=== PATIENT | male | born 1935 | race Caucasian/White ===

== ENCOUNTER 2016-03-16 12:18 | Outpatient (RCR) | payer MEDICARE, MEDICAID ==
[~2016-03-16 12:18] MED LIST: ACYC30OI TOP; AGM875T PO; ASP325TEC PO; ASP81CT PO; ASP81TEC PO; ASPI325T32 PO; BUDE0.5A2 NEB; CEFD300C3 PO; CLOP75TA PO; DAILY-VITE PO; DCS100C PO; DIGO250T96 PO; DILT120C PO; DILT240C96 PO; DONE10TA41 PO; DONE10TA5 PO; FRSM40T PO; FURO20TA4 PO; FURO40TA4 PO; GLIM4TAB PO; GLYB2.5T4 PO; GLYB5TAB6 PO; INSASP10V SQ; INSU100C4 SQ; INSU100V5 SQ; INSULIN SC; IPRA3AMP11 NEB; KCL10CCR PO; LEVO125T6 PO; LISI20TA2 PO; LORA0.5T34 PO; LVT.05T PO; MAGN400T6 PO; MELA1TAB11 PO; METO25TA PO; METO50TA7 PO; MGX400T PO; MTF500T PO; MULT-974 PO; Magnesium Oxide PO; NEOM15OI26 TOP; OMEG1CAP77 PO; OMEP-10 PO; OMEP20CA12 PO; OMEP40CA36 PO; PANT40TA PO; PNT40TEC PO; POLY17PO23 PO; POTA10TA36 PO; POTA20TA15 PO; PRED10TA PO; PROP10DR4 OU; PROP15DR OU; RIVA20TA2 PO; RSG4T PO; SAXA5TAB PO; SENN1TAB76 PO; SIMV20TA3 PO; SIMV40TA4 PO; SIMV80TA3 PO; SPRN25T PO; TMZP15C PO; TRAV5DRO OU; TRAZ-144 PO; WARF4TAB PO; WRF5T PO; ZINC113C8 TP
--- OUTSIDE RECORDS SUMMARY | 2016-03-16 12:22 | XMS REPORT | Continuity of Care Document ---
Author Author [facility] Organization [facility] Address Unknown Phone Unavailable Care Team Providers Care Outside Sales Professional Name Role Phone GERMANIA CHAIREZ MD PCP Insurance Providers Payer Name Policy Number Subscriber Name Relationship Wps Medicare [id number] Allison Mondragon 16 Self / Same As Patient Self Pay Pending Radha Apprv [id number] Allison Mondragon 16 Self / Same As Patient Advance Directives Directive Response Recorded Date/Time Advance Directives No 01/02/14 4:59pm Health Care Power of Tap And Die Maker Technician No 01/02/14 4:59pm Organ Donor No 02/06/13 [...] 120 Mg PO DAILY 02/18/10 12/02/11 Discontinued [place]-3/Dha/Epa/Fish Oil 1 Each PO DAILY 12/02/11 03/22/12 [...] F (97.6 - 99.5) Temperature (Calculated Celsius) 36.84450 degrees C (36.4 - 37.5) Temperature Source Temporal Pulse Rate (adult) 79 bpm (60 - 90) Respiratory Rate 18 bpm (12 - 24) O2 Sat by Pulse Oximetry 94 % (88 - 100) Blood Pressure 122/67 mm Hg Pain Pain Intensity 0 Height (Feet) 6 feet Height (Inches) 0.00 inches Height (Calculated Centimeters) 182.645304 cm Weight (Pounds) 211 pounds Weight (Calculated Grams) 93172.991 gm Weight (Calculated Kilograms) 95.435736 kilograms Calculated BMI 28.61 Results Test Source [...] NG/ML - Interpretative data is available online at:[email or web address] Enter Test Number:[id number] Prothromb Time International Ratio August 25, 2012 12:56pm 2.7 H 0.8-1.4 INTERPRETIVE DATASUGGESTED THERAPEUTIC RANGE FOR INR'S: VENOUS THROMBOSIS, PULMONARY EMBOLISM, OR PREVENTION OF SYSTEMIC EMBOLISM (EG. IN ATRIAL FIBRILLATION): 2.0 - 3.0 MECHANICAL PROSTHETIC HEART VALVES: 2.5 - 3.5* *NOTE: INR'S UP TO 4.5 MAY BE NECESSARY IN SELECTED GROUPS OF HIGH RISK PATIENTS. [employer] [employer] CONSENSUS CONFERENCE ON ANTITHROMBOTIC THERAPY (2000). Prothrombin Time March 01, 2013 2:15pm 25.7 SEC H 12.2-14.7 Red Blood Count January 02, 2014 1:30pm 2.36 10^6/uL L 4.35-5.85 PRINT TO CCRPT5 Red Cell Distribution Width January 02, 2014 1:30pm 16.0 % H 10.0-14.5 PRINT TO CCRPT5 Sodium Level January 02, 2014 1:30pm 129 MMOL/L L 135-145 PRINT TO CCRPT5 TSH [place] Testing February 17, 2010 2:40pm 1.25 UIU/ML [...] collected/obtained? YSpecimen Description CLEAN CATCH Urine Specific [place] May 06, 2012 9:53am 1.015 L - [...] February 13, 2013 1:12pm Transfusion Reaction Form [id number] - Estimat Glomerular Filtration Rate January 02, [...] SELECTED GROUPS OF HIGH RISK PATIENTS. [employer] CONSENSUS CONFERENCE ON [...] SELECTED GROUPS OF HIGH RISK PATIENTS. [employer] CONSENSUS CONFERENCE ON [...]
[2016-03-16 13:27] LABS: BASOPHILS % (AUTO) 0 % (0-10); EOSINOPHILS # (AUTO) 0.1 10^3/uL (0.0-0.3); EOSINOPHILS % (AUTO) 2 % (0-10); LYMPHOCYTES # (AUTO) 1.5 X 10^3 (1.0-4.0); LYMPHOCYTES % (AUTO) 22 % (12-44); MEAN CORPUSCULAR HEMOGLOBIN 31 PG (25-34); MEAN CORPUSCULAR HGB CONC 33 G/DL (32-36); MEAN CORPUSCULAR VOLUME 92 FL (80-99); MEAN PLATELET VOLUME 9.2 FL (7.4-10.4); MONOCYTES # (AUTO) 0.9 X 10^3 (0.0-1.0); MONOCYTES % (AUTO) 14 % (0-12); NEUTROPHILS # (AUTO) 4.1 X 10^3 (1.8-7.8); NEUTROPHILS % (AUTO) 62 % (42-75); PLATELET COUNT 202 10^3/uL (130-400); RED BLOOD COUNT 4.03 10^6/uL (4.35-5.85); RED CELL DISTRIBUTION WIDTH 13.6 % (10.0-14.5); WHITE BLOOD COUNT 6.7 10^3/uL (4.3-11.0)
[2016-03-16 14:09] LABS: ALANINE AMINOTRANSFERASE 60 U/L (0-55); ALBUMIN 3.9 G/DL (3.2-4.5); ANION GAP 14 MMOL/L (5-14); ASPARTATE AMINO TRANSFERASE 26 U/L (5-34); BILIRUBIN,TOTAL 0.1 MG/DL (0.1-1.0); BLOOD UREA NITROGEN 18 MG/DL (7-18); BUN/CREATININE RATIO 16; CALCIUM 9.5 MG/DL (8.5-10.1); CARBON DIOXIDE 20 MMOL/L (21-32); CHLORIDE 104 MMOL/L (98-107); CREATININE SERUM 1.11 MG/DL (0.60-1.30); GFR ESTIMATED > 60; GLUCOSE 134 MG/DL (70-105); POTASSIUM 4.1 MMOL/L (3.6-5.0); SODIUM 138 MMOL/L (135-145); TOTAL PROTEIN 6.6 G/DL (6.4-8.2)
== END 2016-06-14 | disposition home or self-care (01) ==
LOC: ONC 12:18
PROVIDERS: ATTEND Internal Medicine Hematology & Oncology
DX: C34.2 Malignant neoplasm of middle lobe, bronchus or lung (principal); J44.9 Chronic obstructive pulmonary disease, unspecified; E83.42 Hypomagnesemia; I48.91 Unspecified atrial fibrillation; E11.9 Type 2 diabetes mellitus without complications; D64.9 Anemia, unspecified; Z79.01 Long term (current) use of anticoagulants
CPT/HCPCS: 36415; 80053; 85025; 99213

== ENCOUNTER 2016-05-11 10:07 | Outpatient (RCR) | payer MEDICARE, MEDICAID ==
--- OUTSIDE RECORDS SUMMARY | 2016-03-10 14:23 | XMS REPORT | Continuity of Care Document ---
Author Author [facility] Organization [facility] Address Unknown Phone Unavailable Care Team Providers Care User Experience Team Lead Name Role Phone GERMANIA CHAIREZ MD PCP Insurance Providers Payer Name Policy Number Subscriber Name Relationship Wps Medicare [id number] Allison Mondragon 18 Self / Same As Patient Self Pay Pending Radha Apprv [id number] Allison Mondragon 18 Self / Same As Patient Advance Directives Directive Response Recorded Date/Time Advance Directives No 01/02/14 4:59pm Health Care Power of Clip Bolter And Wrapper No 01/02/14 4:59pm Organ Donor No 02/06/13 2:31pm Resuscitation Status Full Code 01/02/14 4:59pm Problems No known problems or medical conditions. Medications Medication Dose Route Sig Days/Qty Instructions Order Date Discontinued Date Status Metformin HCl (Glucophage) 2 Each PO TWICE A DAY WITH MEALS 02/17/10 02/11/13 Discontinued Glyburide (Micronase) 2 Each PO TWICE A DAY 02/17/10 02/06/13 Discontinued Simvastatin 0.5 Tab PO BEDTIME 02/17/10 02/17/10 Discontinued [Daily-Yojana] 1 Tab PO DAILY 02/17/10 02/06/13 Discontinued Omeprazole 20 Mg PO DAILY 02/17/10 12/02/11 Discontinued Lisinopril 20 Mg PO DAILY 02/17/10 Active Rosiglitazone Maleate 8 Mg PO DAILY 02/17/10 12/02/11 Discontinued Simvastatin 40 Mg PO TWICE A DAY 02/17/10 02/06/13 Discontinued Diltiazem HCl (Cardizem Cd) 120 Mg PO DAILY 02/18/10 12/02/11 Discontinued [place]-3/Dha/Epa/Fish Oil 1 Each PO DAILY 12/02/11 03/22/12 Discontinued [Insulin] 20 Units SC BEDTIME PT DOES NOT KNOW THE NAME OF HIS INSULIN 12/02/11 02/06/12 Discontinued Aspirin 81 Mg PO DAILY 02/06/12 02/11/13 Discontinued Clopidogrel Bisulfate 75 Mg PO DAILY 02/06/12 Active Diltiazem Hcl 240 Mg PO DAILY 02/06/12 Active Pantoprazole Sodium 40 Mg PO DAILY 02/06/12 04/18/12 Discontinued Metoprolol Succinate 25 Mg PO DAILY 02/06/12 01/02/14 Discontinued Insulin Glargine 35 Units SQ BEDTIME 02/06/12 Active Amoxicillin/Clavulanate Potassium 1 Tab PO TWICE A DAY 20 Qty 03/06/12 03/22/12 Discontinued Senna 2 Tab PO BEDTIME 03/22/12 Active Docusate Sodium 100 Mg PO THREE TIMES A DAY PRN CONSTIPATION NEEDED FOR CONSTIPATION 03/22/12 Active Potassium Chloride 10 Meq PO DAILY WITH MEAL 03/22/12 Active Furosemide (Lasix) 40 Mg PO DAILY 03/22/12 Active Magnesium Oxide 400 Mg PO TWICE A DAY 03/22/12 Active Omeprazole 2 Cap PO DAILY 04/18/12 01/02/14 Discontinued Warfarin Sodium 1 Each PO DIRECTED 04/19/12 02/06/13 Discontinued Cefdinir (Omnicef) 1 Each PO TWICE A DAY 10 Qty 06/01/12 01/16/13 Discontinued Glyburide (Micronase) 2.5 Mg PO TWICE DAILY BEFORE MEALS 02/06/13 Active Simvastatin 20 Mg PO BEDTIME 02/06/13 Active Multivitamin 1 Tab PO DAILY 02/06/13 Active Digoxin 0.25 Mg PO DAILY 02/11/13 Active Rivaroxaban 20 Mg PO DAILY 02/11/13 01/05/14 Discontinued Metoprolol Succinate (Toprol Xl) 25 Mg PO DAILY 01/02/14 Active Omeprazole 40 Mg PO DAILY 01/02/14 Active Levothyroxine Sodium 50 Mcg PO DAILY 01/02/14 Active Social History Social History Problem Response Recorded Date/Time Alcohol Use Past History 01/02/2014 5:01pm Recreational Drug Use No 01/02/2014 5:01pm Recent Foreign Travel No 01/02/2014 5:01pm Recent Infectious Disease Exposure No 01/02/2014 5:01pm Hospitalization with Isolation Denies 01/05/2014 3:40pm Sexually Transmitted Disease No 01/02/2014 5:01pm HIV/AIDS No 01/02/2014 5:01pm Smoking Status Former Smoker 01/02/2014 4:56pm Do you dip or chew tobacco? No 01/02/2014 4:56pm Query Response Start Date Stop Date Smoking Status Former Smoker 01/03/1984 Hospital Discharge Instructions Patient Instructions Physician Instructions New, Converted, or Re-newed RX: Other (patient has medications already) Plan of Care/Instructions/FU: Follow up with Dr. Maria in 2 week, with lab visit on WednesdayJan 09, for CBC check; Activity as Tolerated: Yes Goal: Self care Dicharge Diet: ADA Diet Return to the hospital for: Weakness, dizziness, Black stools. Plan of Care Discharge Date 01/05/14 3:10pm Disposition 30 STILL A PATIENT Instructions/Education Provided Gastritis (DC) Forms Provided Follow-Up Appts. Prescriptions See Medications Section Functional Status Query Response Date Recorded Patient Orientation Person Place Time Situation Normal For Age January 05, 2014 3:40pm Comprehension Ability Understands Concepts January 05, 2014 8:00am Allergies, Adverse Reactions, Alerts Allergen Type Severity Reaction Status Last Updated No Known Drug Allergies Active 03/22/12 Immunizations Name Given Type Date of Pneumonia Vaccine 03/07/09 Historical Date of Influenza Vaccine 03/07/12 Historical Hepatitis A No Historical Hepatitis B No Historical Tetanus Booster (TDap) Less than 5yrs Historical Vital Signs Acute Vital Signs Vital Response Date/Time Temperature (Fahrenheit) 98.5 degrees F (97.6 - 99.5) Temperature (Calculated Celsius) 36.24648 degrees C (36.4 - 37.5) Temperature Source Temporal Pulse Rate (adult) 79 bpm (60 - 90) Respiratory Rate 18 bpm (12 - 24) O2 Sat by Pulse Oximetry 94 % (88 - 100) Blood Pressure 122/67 mm Hg Pain Pain Intensity 0 Height (Feet) 6 feet Height (Inches) 0.00 inches Height (Calculated Centimeters) 182.557403 cm Weight (Pounds) 211 pounds Weight (Calculated Grams) 43798.991 gm Weight (Calculated Kilograms) 95.169499 kilograms Calculated BMI 28.61 Results Test Source Date Result Interp. Ref. Range Comments Activated Partial Thromboplast Time October 20, 2012 12:45pm 52 SEC H 24-35 Alanine Aminotransferase (ALT/SGPT) December 26, 2013 12:45pm 10 U/L N 0-55 PRINT TO CCRPT5 Albumin December 26, 2013 12:45pm 3.3 G/DL N 3.2-4.5 PRINT TO CCRPT5 Alkaline Phosphatase December 26, 2013 12:45pm 63 U/L N 40-136 PRINT TO CCRPT5 Anisocytosis June 01, 2012 2:20pm SLIGHT - Aspartate Amino Transf (AST/SGOT) December 26, 2013 12:45pm 14 U/L N 5-34 PRINT TO CCRPT5 B-Type Natriuretic Peptide February 17, 2010 2:40pm 32.6 PG/ML N 5.0- 100.0 BUN/Creatinine Ratio January 02, 2014 1:30pm 17 - PRINT TO CCRPT5 Band Neutrophils June 01, 2012 2:20pm 5 % - Basophils # (Auto) January 02, 2014 1:30pm 0.0 10^3/uL N 0.0-0.1 PRINT TO CCRPT5 Basophils % (Manual) June 01, 2012 2:20pm 0 % - Basophils (%) (Auto) January 02, 2014 1:30pm 1 % N 0-10 PRINT TO CCRPT5 Blood Urea Nitrogen January 02, 2014 1:30pm 31 MG/DL H 7-18 PRINT TO CCRPT5 C-Reactive Protein February 18, 2010 5:00am < 0.2 MG/DL L 0.2-0.9 verified by dilution Calcium Level January 02, 2014 1:30pm 8.6 MG/DL N 8.5-10.1 PRINT TO CCRPT5 Carbon Dioxide Level January 02, 2014 1:30pm 26 MMOL/L N 21-32 PRINT TO CCRPT5 Chloride Level January 02, 2014 1:30pm 97 MMOL/L L 98-107 PRINT TO CCRPT5 Cholesterol Level January 24, 2013 8:35am 84 MG/DL N -200 Creatine Kinase MB February 06, 2013 7:45am 2.1 NG/ML N 0.0-3.6 Creatinine January 02, 2014 1:30pm 1.78 MG/DL H 0.60-1.30 PRINT TO CCRPT5 D-Dimer February 06, 2013 7:45am 3.29 UG/ML H 0.00-0.49 Direct Bilirubin January 24, 2013 8:35am 0.2 MG/DL N 0.0-0.30 Elliptocytes June 01, 2012 2:20pm SLIGHT - Eosinophils # (Auto) January 02, 2014 1:30pm 0.1 10^3/uL N 0.0-0.3 PRINT TO CCRPT5 Eosinophils % (Manual) June 01, 2012 2:20pm 0 % - Eosinophils (%) (Auto) January 02, 2014 1:30pm 4 % N 0-10 PRINT TO CCRPT5 Ferritin March 01, 2013 2:15pm 359 H NG/ML - Folate February 06, 2013 6:10pm 16.6 NG/ML - Glucose Level January 02, 2014 1:30pm 208 MG/DL H 70-105 PRINT TO CCRPT5 HDL Cholesterol January 24, 2013 8:35am 26 MG/DL L 35-60 Hematocrit January 02, 2014 1:30pm 21 % L 40-54 PRINT TO CCRPT5 Hemoglobin January 02, 2014 1:30pm 7.0 G/DL L 13.3-17.7 PRINT TO CCRPT5 Hemoglobin A1c November 02, 2012 8:37am 8.0 % H 4.5-6.2 Indirect Bilirubin January 24, 2013 8:35am 0.5 MG/DL - Iron Level March 01, 2013 2:15pm 43 UG/DL - LDL Cholesterol January 24, 2013 8:35am 46 MG/DL N 0-129 Lactate Dehydrogenase March 22, 2012 4:35pm 206 U/L N 115-218 Lymphocytes # (Auto) January 02, 2014 1:30pm 0.8 X 10^3 L 1.0-4.0 PRINT TO CCRPT5 Lymphocytes % (Manual) June 01, 2012 2:20pm 7 % - Lymphocytes (%) (Auto) January 02, 2014 1:30pm 63 % H 12-44 PRINT TO CCRPT5 Magnesium Level January 02, 2014 1:30pm 1.5 MG/DL L 1.8-2.4 PRINT TO CCRPT5 Mean Corpuscular Hemoglobin January 02, 2014 1:30pm 30 PG N 25-34 PRINT TO CCRPT5 Mean Corpuscular Hemoglobin Concent January 02, 2014 1:30pm 33 G/DL N 32- 36 PRINT TO CCRPT5 Mean Corpuscular Volume January 02, 2014 1:30pm 90 FL N 80-99 PRINT TO CCRPT5 Mean Platelet Volume January 02, 2014 1:30pm 9.3 FL N 7.4-10.4 PRINT TO CCRPT5 Monocytes # (Auto) January 02, 2014 1:30pm 0.4 X 10^3 N 0.0-1.0 PRINT TO CCRPT5 Monocytes % (Manual) June 01, 2012 2:20pm 1 % - Monocytes (%) (Auto) January 02, 2014 1:30pm 29 % H 0-12 PRINT TO CCRPT5 Neutrophils # (Auto) January 02, 2014 1:30pm 0.0 X 10^3 L 1.8-7.8 PRINT TO CCRPT5 Neutrophils % (Manual) June 01, 2012 2:20pm 87 % - Neutrophils (%) (Auto) January 02, 2014 1:30pm 3 % L 42-75 PRINT TO CCRPT5 Platelet Count January 02, 2014 1:30pm 224 10^3/uL N 130-400 PRINT TO CCRPT5 Potassium Level January 02, 2014 1:30pm 3.6 MMOL/L N 3.6-5.0 PRINT TO CCRPT5 Prostate Specific Antigen December 01, 2011 10:00am 2.01 NG/ML - Interpretative data is available online at:[email or web address] Enter Test Number:[id number] Prothromb Time International Ratio August 25, 2012 12:56pm 2.7 H 0.8-1.4 INTERPRETIVE DATASUGGESTED THERAPEUTIC RANGE FOR INR'S: VENOUS THROMBOSIS, PULMONARY EMBOLISM, OR PREVENTION OF SYSTEMIC EMBOLISM (EG. IN ATRIAL FIBRILLATION): 2.0 - 3.0 MECHANICAL PROSTHETIC HEART VALVES: 2.5 - 3.5* *NOTE: INR'S UP TO 4.5 MAY BE NECESSARY IN SELECTED GROUPS OF HIGH RISK PATIENTS. [employer] [place] CONSENSUS CONFERENCE ON ANTITHROMBOTIC THERAPY (2000). Prothrombin Time March 01, 2013 2:15pm 25.7 SEC H 12.2-14.7 Red Blood Count January 02, 2014 1:30pm 2.36 10^6/uL L 4.35-5.85 PRINT TO CCRPT5 Red Cell Distribution Width January 02, 2014 1:30pm 16.0 % H 10.0-14.5 PRINT TO CCRPT5 Sodium Level January 02, 2014 1:30pm 129 MMOL/L L 135-145 PRINT TO CCRPT5 TSH [place] Testing February 17, 2010 2:40pm 1.25 UIU/ML N 0.34-5.60 Tear Drop Cells June 01, 2012 2:20pm SLIGHT - Thyroid Stimulating Hormone (TSH) February 06, 2013 7:45am 4.16 UIU/ML N 0.34-5.60 Total Bilirubin December 26, 2013 12:45pm 0.9 MG/DL N 0.1-1.0 PRINT TO CCRPT5 Total Iron Binding Capacity March 01, 2013 2:15pm 233 L UG/DL - Total Protein December 26, 2013 12:45pm 6.7 G/DL N 6.4-8.2 PRINT TO CCRPT5 Transferrin % Saturation March 01, 2013 2:15pm 18 % - Triglycerides Level January 24, 2013 8:35am 62 MG/DL N 30.0-150.0 Troponin I February 06, 2013 7:45am < 0.10 NG/ML 0.00-0.10 Urine Bacteria May 06, 2012 9:53am NONE /HPF - Has specimen been collected/obtained? YSpecimen Description CLEAN CATCH Urine Bilirubin May 06, 2012 9:53am NEGATIVE - Has specimen been collected/obtained? YSpecimen Description CLEAN CATCH Urine Casts May 06, 2012 9:53am NONE /LPF - Has specimen been collected/obtained? YSpecimen Description CLEAN CATCH Urine Clarity May 06, 2012 9:53am CLEAR - Has specimen been collected/obtained? YSpecimen Description CLEAN CATCH Urine Color May 06, 2012 9:53am YELLOW - Has specimen been collected/obtained? YSpecimen Description CLEAN CATCH Urine Crystals May 06, 2012 9:53am NONE /LPF - Has specimen been collected/obtained? YSpecimen Description CLEAN CATCH Urine Culture Indicated May 06, 2012 9:53am NO - Has specimen been collected/obtained? YSpecimen Description CLEAN CATCH Urine Glucose (UA) May 06, 2012 9:53am 1+ H - Has specimen been collected/obtained? YSpecimen Description CLEAN CATCH Urine Ketones May 06, 2012 9:53am NEGATIVE - Has specimen been collected/obtained? YSpecimen Description CLEAN CATCH Urine Leukocyte Esterase May 06, 2012 9:53am NEGATIVE - Has specimen been collected/obtained? YSpecimen Description CLEAN CATCH Urine Mucus May 06, 2012 9:53am NEGATIVE /LPF - Has specimen been collected/obtained? YSpecimen Description CLEAN CATCH Urine Nitrite May 06, 2012 9:53am NEGATIVE - Has specimen been collected/obtained? YSpecimen Description CLEAN CATCH Urine Protein May 06, 2012 9:53am NEGATIVE - Has specimen been collected/obtained? YSpecimen Description CLEAN CATCH Urine RBC May 06, 2012 9:53am NONE /HPF - Has specimen been collected/obtained? YSpecimen Description CLEAN CATCH Urine Specific [place] May 06, 2012 9:53am 1.015 L - Has specimen been collected/obtained? YSpecimen Description CLEAN CATCH Urine Squamous Epithelial Cells May 06, 2012 9:53am 0-2 /HPF - Has specimen been collected/obtained? YSpecimen Description CLEAN CATCH Urine Urobilinogen May 06, 2012 9:53am NORMAL MG/DL - Has specimen been collected/obtained? YSpecimen Description CLEAN CATCH Urine WBC May 06, 2012 9:53am NONE /HPF - Has specimen been collected/obtained? YSpecimen Description CLEAN CATCH Urine pH May 06, 2012 9:53am 5 - Has specimen been collected/ obtained? YSpecimen Description CLEAN CATCH VLDL Cholesterol January 24, 2013 8:35am 12 MG/DL N 5-40 Vitamin B12 Level February 06, 2013 6:10pm 281 PG/ML - White Blood Count January 02, 2014 1:30pm 1.2 10^3/uL PL 4.3-11.0 RESULTS GIVEN TO RN AT 13:34. DESIREEJ Pro-B-Type Natriuretic Peptide February 08, 2013 5:02am 2805.0 PG/ML H -450 Glucometer February 11, 2013 11:00am 156 MG/DL H 70-110 Lab Scanned Report February 13, 2013 1:12pm Transfusion Reaction Form [id number] - Estimat Glomerular Filtration Rate January 02, 2014 1:30pm 37 - GFR INTERPRETIVE DATA UNITS FOR ESTIMATED GFR (eGFR): mL/min/1.73 M2 REFERENCE RANGE FOR ESTIMATED GFR (eGFR) eGFR NORMAL eGFR >60 MODERATELY DECREASED eGFR 30-59 SEVERLY DECREASED eGFR 15-29 KIDNEY FAILURE <15 (OR DIALYSIS) Creatine Kinase March 23, 2012 4:45am 79 U/L N 1-205 Cardiac Panel Pathologist Review March 22, 2012 4:35pm SEE CARDIAC PATH REV - Stool Occult Blood Immunoassay December 19, 2012 6:00am NEGATIVE - SPECIMEN #1 / DATE AND TIME NOT GIVEN INR International Normalized Ratio September 01, 2012 8:37am 2.4 H 0.8-1.4 INTERPRETIVE DATASUGGESTED THERAPEUTIC RANGE FOR INR'S: VENOUS THROMBOSIS, PULMONARY EMBOLISM, OR PREVENTION OF SYSTEMIC EMBOLISM (EG. IN ATRIAL FIBRILLATION): 2.0 - 3.0 MECHANICAL PROSTHETIC HEART VALVES: 2.5 - 3.5* *NOTE: INR'S UP TO 4.5 MAY BE NECESSARY IN SELECTED GROUPS OF HIGH RISK PATIENTS. [employer] CONSENSUS CONFERENCE ON ANTITHROMBOTIC THERAPY (2000). Urine RBC (Auto) May 06, 2012 9:53am NEGATIVE - Has specimen been collected/obtained? YSpecimen Description CLEAN CATCH INR Comment March 01, 2013 2:15pm 2.4 H 0.8-1.4 INTERPRETIVE DATASUGGESTED THERAPEUTIC RANGE FOR INR'S: VENOUS THROMBOSIS, PULMONARY EMBOLISM, OR PREVENTION OF SYSTEMIC EMBOLISM (EG. IN ATRIAL FIBRILLATION): 2.0 - 3.0 MECHANICAL PROSTHETIC HEART VALVES: 2.5 - 3.5* *NOTE: INR'S UP TO 4.5 MAY BE NECESSARY IN SELECTED GROUPS OF HIGH RISK PATIENTS. [employer] [place] CONSENSUS CONFERENCE ON ANTITHROMBOTIC THERAPY (2000). Blood Culture Port-Not Otherwise Specified February 06, 2013 9:10am No growth MRSA Screen Nasal April 18, 2012 10:32am MRSA not isolated Urine Culture Urine-Clean Catch March 22, 2012 6:45pm Procedures Procedure Status Date Provider(s) Esophagogastroduodenoscopy (EGD) with dilation completed 01/03/14 YUE DE LOS SANTOS MD Encounters Encounter Location Date/Time Discharged Inpatient Via [facility] 01/02/14 3:55pm Registered Recurring Via [facility] 01/02/14 12:40pm Registered Clinic Via [facility] 12/19/13 8:18am
[2016-03-10 14:25] VITALS: BP 117/71
--- OUTSIDE RECORDS SUMMARY | 2016-04-13 10:14 | XMS REPORT | Continuity of Care Document ---
Author Author [facility] Organization [facility] Address Unknown Phone Unavailable Care Team Providers Care Chef Concierge Name Role Phone GERMANIA CHAIREZ MD PCP Insurance Providers Payer Name Policy Number Subscriber Name Relationship Wps Medicare [id number] Allison Mondragon 16 Self / Same As Patient Self Pay Pending Radha Apprv [id number] Allison Mondragon 16 Self / Same As Patient Advance Directives Directive Response Recorded Date/Time Advance Directives No 01/02/14 4:59pm Health Care Power of Tar And Ammonia Pump Operator No 01/02/14 4:59pm Organ Donor No 02/06/13 [...] 120 Mg PO DAILY 02/18/10 12/02/11 Discontinued [place]-3/Dha/Epa/Fish Oil 1 Each PO DAILY 12/02/11 03/22/12 [...] F (97.6 - 99.5) Temperature (Calculated Celsius) 36.52673 degrees C (36.4 - 37.5) Temperature Source Temporal Pulse Rate (adult) 79 bpm (60 - 90) Respiratory Rate 18 bpm (12 - 24) O2 Sat by Pulse Oximetry 94 % (88 - 100) Blood Pressure 122/67 mm Hg Pain Pain Intensity 0 Height (Feet) 6 feet Height (Inches) 0.00 inches Height (Calculated Centimeters) 182.107071 cm Weight (Pounds) 211 pounds Weight (Calculated Grams) 95498.991 gm Weight (Calculated Kilograms) 95.779282 kilograms Calculated BMI 28.61 Results Test Source [...] NG/ML - Interpretative data is available online at:[email or web address] Enter Test Number:[id number] Prothromb Time International Ratio August 25, 2012 12:56pm 2.7 H 0.8-1.4 INTERPRETIVE DATASUGGESTED THERAPEUTIC RANGE FOR INR'S: VENOUS THROMBOSIS, PULMONARY EMBOLISM, OR PREVENTION OF SYSTEMIC EMBOLISM (EG. IN ATRIAL FIBRILLATION): 2.0 - 3.0 MECHANICAL PROSTHETIC HEART VALVES: 2.5 - 3.5* *NOTE: INR'S UP TO 4.5 MAY BE NECESSARY IN SELECTED GROUPS OF HIGH RISK PATIENTS. [employer] [place] [employer] CONSENSUS CONFERENCE ON ANTITHROMBOTIC THERAPY (2000). Prothrombin Time March 01, 2013 2:15pm 25.7 SEC H 12.2-14.7 Red Blood Count January 02, 2014 1:30pm 2.36 10^6/uL L 4.35-5.85 PRINT TO CCRPT5 Red Cell Distribution Width January 02, 2014 1:30pm 16.0 % H 10.0-14.5 PRINT TO CCRPT5 Sodium Level January 02, 2014 1:30pm 129 MMOL/L L 135-145 PRINT TO CCRPT5 TSH [place] Testing February 17, 2010 2:40pm 1.25 UIU/ML [...] collected/obtained? YSpecimen Description CLEAN CATCH Urine Specific [place] May 06, 2012 9:53am 1.015 L - [...] February 13, 2013 1:12pm Transfusion Reaction Form [id number] - Estimat Glomerular Filtration Rate January 02, [...] SELECTED GROUPS OF HIGH RISK PATIENTS. [employer] [place] [employer] CONSENSUS CONFERENCE ON [...] SELECTED GROUPS OF HIGH RISK PATIENTS. [employer] [place] [employer] CONSENSUS CONFERENCE ON ANTITHROMBOTIC THERAPY (2000). Blood Culture Port-Not Otherwise Specified February 06, 2013 9:10am No growth MRSA Screen Nasal April 18, 2012 10:32am MRSA not isolated Urine Culture Urine-Clean Catch March 22, 2012 6:45pm Procedures Procedure Status Date Provider(s) Esophagogastroduodenoscopy (EGD) with dilation completed 01/03/14 YUE DE LOS SANTOS MD Encounters Encounter Location Date/Time Discharged Inpatient Via [facility] 01/02/14 3:55pm Registered Recurring Via [facility] 01/02/14 12:40pm Registered Clinic Via [facility] 12/19/13 8:18am
[2016-04-13 10:30] VITALS: BP 120/83
[~2016-05-11] VITALS: Ht 182.9 cm; Wt 97.1 kg
[~2016-05-11 10:07] MED LIST changes: +FLU TRIvalent (5 YOA+) 2016-17 (AFLURIA) 0.5 ML IM ONE
[2016-05-11 10:18] VITALS: BP 149/87
== END 2016-06-08 | disposition home or self-care (01) ==
LOC: SDC 10:07
DX: I87.2 Venous insufficiency (chronic) (peripheral) (principal)
CPT/HCPCS: 96523

== ENCOUNTER 2016-06-29 12:57 | Outpatient (RCR) | payer MEDICARE, MEDICAID ==
[~2016-06-29 12:57] MED LIST changes: -FLU TRIvalent (5 YOA+) 2016-17 (AFLURIA) 0.5 ML IM ONE
--- OUTSIDE RECORDS SUMMARY | 2016-06-29 13:00 | XMS REPORT | Continuity of Care Document ---
Author Author [facility] Organization [facility] Address Unknown Phone Unavailable Care Team Providers Care Silk Screen Etcher Name Role Phone GERMANIA CHAIREZ MD PCP Insurance Providers Payer Name Policy Number Subscriber Name Relationship [employer] [id number] Allison Mondragon 16 Self / Same As Patient Self Pay Pending Radha Apprv [id number] Allison Mondragon 16 Self / Same As Patient Advance Directives Directive Response Recorded Date/Time Advance Directives No 01/02/14 4:59pm Health Care Power of Craniologist No 01/02/14 4:59pm Organ Donor No 02/06/13 [...] 120 Mg PO DAILY 02/18/10 12/02/11 Discontinued [place]-3/Dha/Epa/Fish Oil 1 Each PO DAILY 12/02/11 03/22/12 [...] F (97.6 - 99.5) Temperature (Calculated Celsius) 36.32004 degrees C (36.4 - 37.5) Temperature Source Temporal Pulse Rate (adult) 79 bpm (60 - 90) Respiratory Rate 18 bpm (12 - 24) O2 Sat by Pulse Oximetry 94 % (88 - 100) Blood Pressure 122/67 mm Hg Pain Pain Intensity 0 Height (Feet) 6 feet Height (Inches) 0.00 inches Height (Calculated Centimeters) 182.064741 cm Weight (Pounds) 211 pounds Weight (Calculated Grams) 25073.991 gm Weight (Calculated Kilograms) 95.208926 kilograms Calculated BMI 28.61 Results Test Source [...] NG/ML - Interpretative data is available online at:[email or web address] Enter Test Number:[id number] Prothromb Time International Ratio August 25, 2012 12:56pm 2.7 H 0.8-1.4 INTERPRETIVE DATASUGGESTED THERAPEUTIC RANGE FOR INR'S: VENOUS THROMBOSIS, PULMONARY EMBOLISM, OR PREVENTION OF SYSTEMIC EMBOLISM (EG. IN ATRIAL FIBRILLATION): 2.0 - 3.0 MECHANICAL PROSTHETIC HEART VALVES: 2.5 - 3.5* *NOTE: INR'S UP TO 4.5 MAY BE NECESSARY IN SELECTED GROUPS OF HIGH RISK PATIENTS. [employer] CONSENSUS CONFERENCE ON ANTITHROMBOTIC THERAPY (2000). Prothrombin Time March 01, 2013 2:15pm 25.7 SEC H 12.2-14.7 Red Blood Count January 02, 2014 1:30pm 2.36 10^6/uL L 4.35-5.85 PRINT TO CCRPT5 Red Cell Distribution Width January 02, 2014 1:30pm 16.0 % H 10.0-14.5 PRINT TO CCRPT5 Sodium Level January 02, 2014 1:30pm 129 MMOL/L L 135-145 PRINT TO CCRPT5 TSH [place] Testing February 17, 2010 2:40pm 1.25 UIU/ML [...] collected/obtained? YSpecimen Description CLEAN CATCH Urine Specific [place] May 06, 2012 9:53am 1.015 L - [...] February 13, 2013 1:12pm Transfusion Reaction Form [id number] - Estimat Glomerular Filtration Rate January 02, [...] SELECTED GROUPS OF HIGH RISK PATIENTS. [employer] CONSENSUS CONFERENCE ON [...] SELECTED GROUPS OF HIGH RISK PATIENTS. [employer] CONSENSUS CONFERENCE ON ANTITHROMBOTIC THERAPY (2000). Blood Culture Port-Not Otherwise Specified February 06, 2013 9:10am No growth MRSA Screen Nasal April 18, 2012 10:32am MRSA not isolated Urine Culture Urine-Clean Catch March 22, 2012 6:45pm Procedures Procedure Status Date Provider(s) Esophagogastroduodenoscopy (EGD) with dilation completed 01/03/14 YUE DE LOS SANTOS MD Encounters Encounter Location Date/Time Discharged Inpatient Via [facility] 01/02/14 3:55pm Registered Recurring Via [facility] 01/02/14 12:40pm Registered Clinic Via [facility] 12/19/13 8:18am
[2016-06-29 13:25] LABS: BASOPHILS % (AUTO) 0 % (0-10); EOSINOPHILS # (AUTO) 0.2 10^3/uL (0.0-0.3); EOSINOPHILS % (AUTO) 2 % (0-10); LYMPHOCYTES # (AUTO) 1.5 X 10^3 (1.0-4.0); LYMPHOCYTES % (AUTO) 20 % (12-44); MEAN CORPUSCULAR HGB CONC 33 G/DL (32-36); MEAN CORPUSCULAR VOLUME 93 FL (80-99); MEAN PLATELET VOLUME 9.6 FL (7.4-10.4); MONOCYTES % (AUTO) 13 % (0-12); NEUTROPHILS % (AUTO) 64 % (42-75); PLATELET COUNT 205 10^3/uL (130-400); RED BLOOD COUNT 3.94 10^6/uL (4.35-5.85); RED CELL DISTRIBUTION WIDTH 13.8 % (10.0-14.5); WHITE BLOOD COUNT 7.8 10^3/uL (4.3-11.0)
[2016-06-29 13:31] LABS: MEAN CORPUSCULAR HEMOGLOBIN 30 PG (25-34)
[2016-06-29 14:07] LABS: ALANINE AMINOTRANSFERASE 10 U/L (0-55); ALBUMIN 4.1 G/DL (3.2-4.5); ANION GAP 8 MMOL/L (5-14); ASPARTATE AMINO TRANSFERASE 15 U/L (5-34); BILIRUBIN,TOTAL 0.3 MG/DL (0.1-1.0); BLOOD UREA NITROGEN 17 MG/DL (7-18); BUN/CREATININE RATIO 15; CALCIUM 9.4 MG/DL (8.5-10.1); CARBON DIOXIDE 28 MMOL/L (21-32); CHLORIDE 100 MMOL/L (98-107); CREATININE SERUM 1.14 MG/DL (0.60-1.30); GFR ESTIMATED > 60; GLUCOSE 85 MG/DL (70-105); POTASSIUM 4.4 MMOL/L (3.6-5.0); SODIUM 136 MMOL/L (135-145); TOTAL PROTEIN 6.6 G/DL (6.4-8.2)
== END 2016-09-27 | disposition home or self-care (01) ==
LOC: ONC 12:57
PROVIDERS: ATTEND Internal Medicine Hematology & Oncology
DX: C34.2 Malignant neoplasm of middle lobe, bronchus or lung (principal); J44.9 Chronic obstructive pulmonary disease, unspecified; E83.42 Hypomagnesemia; I48.91 Unspecified atrial fibrillation; E11.9 Type 2 diabetes mellitus without complications; D64.9 Anemia, unspecified; Z79.01 Long term (current) use of anticoagulants
CPT/HCPCS: 36415; 80053; 85025; 99213

== ENCOUNTER → 2016-09-07 | Outpatient (RCR) | payer MEDICARE, MEDICAID ==
--- OUTSIDE RECORDS SUMMARY | 2016-06-09 10:08 | XMS REPORT | Continuity of Care Document ---
Author Author [facility] Organization [facility] Address Unknown Phone Unavailable Care Team Providers Care Psychiatry Teacher Name Role Phone GERMANIA CHAIREZ MD PCP Insurance Providers Payer Name Policy Number Subscriber Name Relationship [employer] [id number] Allison Mondragon 16 Self / Same As Patient Self Pay Pending Radha Apprv [id number] Allison Mondragon 16 Self / Same As Patient Advance Directives Directive Response Recorded Date/Time Advance Directives No 01/02/14 4:59pm Health Care Power of International Account Executive No 01/02/14 4:59pm Organ Donor No 02/06/13 [...] 120 Mg PO DAILY 02/18/10 12/02/11 Discontinued [place]-3/Dha/Epa/Fish Oil 1 Each PO DAILY 12/02/11 03/22/12 [...] F (97.6 - 99.5) Temperature (Calculated Celsius) 36.85960 degrees C (36.4 - 37.5) Temperature Source Temporal Pulse Rate (adult) 79 bpm (60 - 90) Respiratory Rate 18 bpm (12 - 24) O2 Sat by Pulse Oximetry 94 % (88 - 100) Blood Pressure 122/67 mm Hg Pain Pain Intensity 0 Height (Feet) 6 feet Height (Inches) 0.00 inches Height (Calculated Centimeters) 182.776925 cm Weight (Pounds) 211 pounds Weight (Calculated Grams) 02847.991 gm Weight (Calculated Kilograms) 95.850042 kilograms Calculated BMI 28.61 Results Test Source [...] NG/ML - Interpretative data is available online at:[email or web address] Enter Test Number:[id number] Prothromb Time International Ratio August 25, 2012 12:56pm 2.7 H 0.8-1.4 INTERPRETIVE DATASUGGESTED THERAPEUTIC RANGE FOR INR'S: VENOUS THROMBOSIS, PULMONARY EMBOLISM, OR PREVENTION OF SYSTEMIC EMBOLISM (EG. IN ATRIAL FIBRILLATION): 2.0 - 3.0 MECHANICAL PROSTHETIC HEART VALVES: 2.5 - 3.5* *NOTE: INR'S UP TO 4.5 MAY BE NECESSARY IN SELECTED GROUPS OF HIGH RISK PATIENTS. [employer] CONSENSUS CONFERENCE ON ANTITHROMBOTIC THERAPY (2000). Prothrombin Time March 01, 2013 2:15pm 25.7 SEC H 12.2-14.7 Red Blood Count January 02, 2014 1:30pm 2.36 10^6/uL L 4.35-5.85 PRINT TO CCRPT5 Red Cell Distribution Width January 02, 2014 1:30pm 16.0 % H 10.0-14.5 PRINT TO CCRPT5 Sodium Level January 02, 2014 1:30pm 129 MMOL/L L 135-145 PRINT TO CCRPT5 TSH [place] Testing February 17, 2010 2:40pm 1.25 UIU/ML [...] collected/obtained? YSpecimen Description CLEAN CATCH Urine Specific [place] May 06, 2012 9:53am 1.015 L - [...] February 13, 2013 1:12pm Transfusion Reaction Form [id number] - Estimat Glomerular Filtration Rate January 02, [...] SELECTED GROUPS OF HIGH RISK PATIENTS. [employer] CONSENSUS CONFERENCE ON [...] SELECTED GROUPS OF HIGH RISK PATIENTS. [employer] CONSENSUS CONFERENCE ON ANTITHROMBOTIC THERAPY (2000). Blood Culture Port-Not Otherwise Specified February 06, 2013 9:10am No growth MRSA Screen Nasal April 18, 2012 10:32am MRSA not isolated Urine Culture Urine-Clean Catch March 22, 2012 6:45pm Procedures Procedure Status Date Provider(s) Esophagogastroduodenoscopy (EGD) with dilation completed 01/03/14 YUE DE LOS SANTOS MD Encounters Encounter Location Date/Time Discharged Inpatient Via [facility] 01/02/14 3:55pm Registered Recurring Via [facility] 01/02/14 12:40pm Registered Clinic Via [facility] 12/19/13 8:18am
[2016-06-09 10:15] VITALS: BP 168/95
[2016-07-10 09:50] VITALS: BP 128/83
[2016-08-07] MEDS: CATHETER FLUSH 10 ML SYR IV PRN (11:54)
[2016-08-07 12:00] VITALS: BP 155/71
[~2016-09-07] VITALS: Ht 182.9 cm; Wt 97.1 kg
[2016-09-07 10:05] VITALS: BP 154/73
[2016-09-07] MEDS: CATHETER FLUSH 10 ML SYR IV PRN (10:20)
== END | disposition home or self-care (01) ==
LOC: SDC 06-09 10:03
DX: I87.2 Venous insufficiency (chronic) (peripheral) (principal)
CPT/HCPCS: 96523

== ENCOUNTER 2016-11-09 10:15 | Outpatient (RCR) | payer MEDICARE, MEDICAID ==
[2016-10-05 13:35] VITALS: BP 170/84
[~2016-11-09] VITALS: Ht 182.9 cm; Wt 97.1 kg
[2016-11-09] MEDS ORDERED: CATHETER FLUSH 10 ML SYR IV PRN (10:30)
[2016-11-09 10:40] VITALS: BP 152/71
== END 2017-01-03 | disposition home or self-care (01) ==
LOC: SDC 10:15
DX: I87.2 Venous insufficiency (chronic) (peripheral) (principal)
CPT/HCPCS: 96523

== ENCOUNTER 2017-01-01 10:56 | Outpatient (RCR) | payer MEDICARE, MEDICAID ==
[2016-10-05 14:05] LABS: BASOPHILS % (AUTO) 1 % (0-10); EOSINOPHILS # (AUTO) 0.2 10^3/uL (0.0-0.3); EOSINOPHILS % (AUTO) 3 % (0-10); LYMPHOCYTES # (AUTO) 1.8 X 10^3 (1.0-4.0); LYMPHOCYTES % (AUTO) 21 % (12-44); MEAN CORPUSCULAR HEMOGLOBIN 30 PG (25-34); MEAN CORPUSCULAR HGB CONC 32 G/DL (32-36); MEAN CORPUSCULAR VOLUME 93 FL (80-99); MEAN PLATELET VOLUME 10.2 FL (7.4-10.4); MONOCYTES # (AUTO) 1.2 X 10^3 (0.0-1.0); MONOCYTES % (AUTO) 13 % (0-12); NEUTROPHILS # (AUTO) 5.4 X 10^3 (1.8-7.8); NEUTROPHILS % (AUTO) 63 % (42-75); PLATELET COUNT 220 10^3/uL (130-400); RED BLOOD COUNT 4.39 10^6/uL (4.35-5.85); RED CELL DISTRIBUTION WIDTH 14.2 % (10.0-14.5); WHITE BLOOD COUNT 8.6 10^3/uL (4.3-11.0)
[2016-10-05 14:21] LABS: ALANINE AMINOTRANSFERASE 361 U/L (0-55); ALBUMIN 4.3 G/DL (3.2-4.5); ANION GAP 14 MMOL/L (5-14); ASPARTATE AMINO TRANSFERASE 89 U/L (5-34); BILIRUBIN,TOTAL 0.5 MG/DL (0.1-1.0); BLOOD UREA NITROGEN 20 MG/DL (7-18); BUN/CREATININE RATIO 18; CALCIUM 9.8 MG/DL (8.5-10.1); CARBON DIOXIDE 20 MMOL/L (21-32); CHLORIDE 102 MMOL/L (98-107); CREATININE SERUM 1.14 MG/DL (0.60-1.30); GFR ESTIMATED > 60; GLUCOSE 134 MG/DL (70-105); POTASSIUM 4.1 MMOL/L (3.6-5.0); SODIUM 136 MMOL/L (135-145); TOTAL PROTEIN 7.5 G/DL (6.4-8.2)
[2017-01-01 11:14] LABS: BASOPHILS % (AUTO) 0 % (0-10); EOSINOPHILS # (AUTO) 0.2 10^3/uL (0.0-0.3); EOSINOPHILS % (AUTO) 2 % (0-10); LYMPHOCYTES % (AUTO) 12 % (12-44); MEAN CORPUSCULAR HEMOGLOBIN 30 PG (25-34); MEAN CORPUSCULAR HGB CONC 33 G/DL (32-36); MEAN CORPUSCULAR VOLUME 92 FL (80-99); MEAN PLATELET VOLUME 10.1 FL (7.4-10.4); MONOCYTES # (AUTO) 1.5 X 10^3 (0.0-1.0); MONOCYTES % (AUTO) 18 % (0-12); NEUTROPHILS # (AUTO) 5.7 X 10^3 (1.8-7.8); NEUTROPHILS % (AUTO) 68 % (42-75); PLATELET COUNT 167 10^3/uL (130-400); RED BLOOD COUNT 4.13 10^6/uL (4.35-5.85); RED CELL DISTRIBUTION WIDTH 13.8 % (10.0-14.5); WHITE BLOOD COUNT 8.4 10^3/uL (4.3-11.0)
[2017-01-01 11:38] LABS: ALANINE AMINOTRANSFERASE 13 U/L (0-55); ALBUMIN 3.9 GM/DL (3.2-4.5); ANION GAP 11 MMOL/L (5-14); ASPARTATE AMINO TRANSFERASE 16 U/L (5-34); BILIRUBIN,TOTAL 0.4 MG/DL (0.1-1.0); BLOOD UREA NITROGEN 21 MG/DL (7-18); BUN/CREATININE RATIO 18; CALCIUM 9.4 MG/DL (8.5-10.1); CARBON DIOXIDE 21 MMOL/L (21-32); CHLORIDE 105 MMOL/L (98-107); CREATININE SERUM 1.14 MG/DL (0.60-1.30); GFR ESTIMATED > 60; GLUCOSE 143 MG/DL (70-105); POTASSIUM 4.7 MMOL/L (3.6-5.0); SODIUM 137 MMOL/L (135-145); TOTAL PROTEIN 6.7 GM/DL (6.4-8.2)
== END 2017-01-03 | disposition home or self-care (01) ==
LOC: ONC 10:56
PROVIDERS: ATTEND Internal Medicine Hematology & Oncology
DX: C34.2 Malignant neoplasm of middle lobe, bronchus or lung (principal); J44.9 Chronic obstructive pulmonary disease, unspecified; E83.42 Hypomagnesemia; I48.91 Unspecified atrial fibrillation; E11.9 Type 2 diabetes mellitus without complications; D64.9 Anemia, unspecified; Z79.01 Long term (current) use of anticoagulants
CPT/HCPCS: 36415; 80053; 85025; 99213

== ENCOUNTER 2017-03-03 13:08 | Outpatient (RCR) | payer MEDICARE, MEDICAID ==
[~2017-03-03] VITALS: Ht 182.9 cm; Wt 97.1 kg
[2017-03-03 13:25] VITALS: BP 0/0
== END 2017-03-06 | disposition home or self-care (01) ==
LOC: SDC 13:08
DX: I87.2 Venous insufficiency (chronic) (peripheral) (principal)
CPT/HCPCS: 96523

== ENCOUNTER → 2017-06-14 | Outpatient (CLI) | payer MEDICARE, MEDICAID ==
[~2017-06-14] VITALS: Ht 175.3 cm; Wt 86.6 kg
[~2017-06-14] MED LIST changes: +CATHETER FLUSH 10 ML SYR IV PRN; +REGADENOSON 0.4 MG/5 ML SYR (LEXISCAN) IV ONE
[2017-06-14 09:02] VITALS: BP 138/76
[2017-06-14 09:07] VITALS: BP 116/63
[2017-06-14 09:09] VITALS: BP 124/76
[2017-06-14 09:11] VITALS: BP 117/69
--- NOTE | 2017-06-14 19:31 | STRESS TEST ---
DATE OF SERVICE: 06/14/2017 LEXISCAN MYOVIEW STRESS TEST REPORT Baseline heart rate is 92, baseline blood pressure 138/76. Baseline EKG is ventricular paced rhythm. In summary, the patient was injected with 11.0 mCi of technetium-99 Myoview and the resting images were obtained. Then, the patient received 0.4 mg of Lexiscan followed by 31.8 mCi of technetium-99 Myoview. Throughout the test, there were no EKG changes. The resting and stress images were reviewed and compared in the short axis, horizontal long axis, and vertical long axis views. Review of the images showed diaphragmatic attenuation with fixed defect involving the whole inferior wall, inferolateral wall and inferoseptum with no significant ischemia. SSS 11, SDS 1, TID value 1.01. On the gated images, the left ventricle appeared to be normal size, mild hypokinesia was noted at the lateral wall and inferolateral wall calculated ejection fraction 53%. CONCLUSION: 1. The patient tolerated Lexiscan well. 2. Baseline paced rhythm persisted throughout test. 3. Diaphragmatic attenuation with fixed defect at the inferior wall with no significant ischemia. 4. Normal left ventricular size with hypokinesia involving the septum and inferoseptum. Calculated ejection fraction 53%. Job ID: [id number] DocumentID: [id number] Dictated Date: 06/14/2017 12:19:33 Data Processing Auditor Date: 06/14/2017 18:55:59 Dictated By: JAROD SANTANA MD
== END ==
LOC: CARD 07:59
PROVIDERS: ATTEND Internal Medicine Cardiovascular Disease
DX: I25.10 Atherosclerotic heart disease of native coronary artery without angina pectoris (principal); I11.0 Hypertensive heart disease with heart failure; I50.9 Heart failure, unspecified; R07.9 Chest pain, unspecified; E78.2 Mixed hyperlipidemia
CPT/HCPCS: 78452; 93017

== ENCOUNTER 2017-06-23 12:59 | Outpatient (RCR) | payer MEDICARE, MEDICAID ==
[2017-03-31 13:53] VITALS: BP 140/86
[2017-04-28 13:38] VITALS: BP 137/78
[2017-05-26 13:04] VITALS: BP 109/72
[~2017-06-23] VITALS: Ht 182.9 cm; Wt 97.1 kg
[~2017-06-23 12:59] MED LIST changes: -CATHETER FLUSH 10 ML SYR IV PRN; -REGADENOSON 0.4 MG/5 ML SYR (LEXISCAN) IV ONE
[2017-06-23 13:15] VITALS: BP 165/81
== END 2017-06-29 | disposition home or self-care (01) ==
LOC: SDC 12:59
DX: I87.2 Venous insufficiency (chronic) (peripheral) (principal)
CPT/HCPCS: 96523

== ENCOUNTER → 2017-09-17 | Outpatient (CLI) | payer MEDICARE, MEDICAID | LOC: CARD 12:14 | PROVIDERS: ATTEND Physician Assistant | DX: I25.10 Atherosclerotic heart disease of native coronary artery without angina pectoris (principal); I11.0 Hypertensive heart disease with heart failure; I50.9 Heart failure, unspecified; E78.2 Mixed hyperlipidemia; I34.0 Nonrheumatic mitral (valve) insufficiency | CPT/HCPCS: 93306 ==

== ENCOUNTER 2017-10-11 13:00 | Outpatient (RCR) | payer MEDICARE, MEDICAID ==
[2017-07-14 13:24] VITALS: BP 132/71
[2017-08-11 12:43] VITALS: BP 132/71
[2017-09-13 12:57] VITALS: BP 168/86
[~2017-10-11] VITALS: Ht 182.9 cm; Wt 97.1 kg
[~2017-10-11 13:00] MED LIST changes: +CATHETER FLUSH 10 ML SYR IV PRN
[2017-10-11 13:20] VITALS: BP 120/77
== END 2017-10-12 | disposition home or self-care (01) ==
LOC: SDC 13:00
DX: I87.2 Venous insufficiency (chronic) (peripheral) (principal)
CPT/HCPCS: 96523

== ENCOUNTER 2018-01-18 13:01 | Outpatient (RCR) | payer MEDICARE, MEDICAID ==
[2017-11-08 12:50] VITALS: BP 147/80
[~2018-01-18] VITALS: Ht 182.9 cm; Wt 97.1 kg
[2018-01-18 13:10] VITALS: BP 149/83
== END 2018-02-06 | disposition home or self-care (01) ==
LOC: SDC 13:01
PROVIDERS: ATTEND Family Medicine
DX: I87.2 Venous insufficiency (chronic) (peripheral) (principal)
CPT/HCPCS: 96523

== ENCOUNTER 2018-02-15 11:36 | Outpatient (RCR) | payer MEDICARE, MEDICAID ==
[~2018-02-15] VITALS: Ht 182.9 cm; Wt 97.1 kg
[2018-02-15 11:35] VITALS: BP 101/65
[~2018-02-15 11:36] MED LIST changes: -CATHETER FLUSH 10 ML SYR IV PRN
== END 2018-03-06 | disposition home or self-care (01) ==
LOC: SDC 11:36
PROVIDERS: ATTEND Family Medicine
DX: I87.2 Venous insufficiency (chronic) (peripheral) (principal)
CPT/HCPCS: 96523

== ENCOUNTER 2018-05-11 13:00 | Outpatient (RCR) | payer MEDICARE, MEDICAID ==
[2018-03-16 12:05] VITALS: BP 124/78
[2018-04-13 13:10] VITALS: BP 137/75
[~2018-05-11] VITALS: Ht 182.9 cm; Wt 97.1 kg
[2018-05-11 13:02] VITALS: BP 126/88
== END 2018-06-14 | disposition home or self-care (01) ==
LOC: SDC 13:00
PROVIDERS: ATTEND Family Medicine
DX: I87.2 Venous insufficiency (chronic) (peripheral) (principal); Z45.2 Encounter for adjustment and management of vascular access device
CPT/HCPCS: 96523

== ENCOUNTER 2018-09-02 12:20 | Outpatient (RCR) | payer MEDICARE, MEDICAID ==
[2018-06-09 13:10] VITALS: BP 128/78
[2018-06-09] MEDS: CATHETER FLUSH 10 ML SYR IV PRN (13:10)
[~2018-09-02] VITALS: Ht 182.9 cm; Wt 97.1 kg
[2018-09-02] MEDS: CATHETER FLUSH 10 ML SYR IV PRN (12:45)
[2018-09-02 12:55] VITALS: BP 159/82
== END 2018-09-07 | disposition home or self-care (01) ==
LOC: SDC 12:20
PROVIDERS: ATTEND Nurse Practitioner Family
DX: Z45.2 Encounter for adjustment and management of vascular access device (principal)
CPT/HCPCS: 96523

== ENCOUNTER 2018-09-12 09:13 | Outpatient (RCR) | payer MEDICARE, MEDICAID ==
[2018-09-12 09:35] LABS: BASOPHILS % (AUTO) 0 % (0-10); EOSINOPHILS # (AUTO) 0.2 10^3/uL (0.0-0.3); EOSINOPHILS % (AUTO) 3 % (0-10); HEMATOCRIT 38 % (40-54); HEMOGLOBIN 12.2 G/DL (13.3-17.7); LYMPHOCYTES # (AUTO) 1.2 X 10^3 (1.0-4.0); LYMPHOCYTES % (AUTO) 17 % (12-44); MEAN CORPUSCULAR HEMOGLOBIN 30 PG (25-34); MEAN CORPUSCULAR HGB CONC 32 G/DL (32-36); MEAN CORPUSCULAR VOLUME 92 FL (80-99); MEAN PLATELET VOLUME 9.8 FL (7.4-10.4); MONOCYTES # (AUTO) 0.8 X 10^3 (0.0-1.0); MONOCYTES % (AUTO) 11 % (0-12); NEUTROPHILS # (AUTO) 4.9 X 10^3 (1.8-7.8); NEUTROPHILS % (AUTO) 69 % (42-75); PLATELET COUNT 210 10^3/uL (130-400); WHITE BLOOD COUNT 7.2 10^3/uL (4.3-11.0)
[2018-09-12 09:52] LABS: ALBUMIN 3.9 GM/DL (3.2-4.5); BILIRUBIN,TOTAL 0.4 MG/DL (0.1-1.0); CALCIUM 9.7 MG/DL (8.5-10.1); CREATININE SERUM 1.31 MG/DL (0.60-1.30); POTASSIUM 4.7 MMOL/L (3.6-5.0); TOTAL PROTEIN 6.6 GM/DL (6.4-8.2)
== END 2018-12-11 | disposition home or self-care (01) ==
LOC: ONC 09:13
PROVIDERS: ATTEND Internal Medicine Hematology & Oncology
DX: C34.2 Malignant neoplasm of middle lobe, bronchus or lung (principal); D63.0 Anemia in neoplastic disease; J44.9 Chronic obstructive pulmonary disease, unspecified; I48.0 Paroxysmal atrial fibrillation; E11.9 Type 2 diabetes mellitus without complications; I11.0 Hypertensive heart disease with heart failure; I50.9 Heart failure, unspecified; E78.2 Mixed hyperlipidemia; I25.10 Atherosclerotic heart disease of native coronary artery without angina pectoris; Z79.4 Long term (current) use of insulin; Z79.899 Other long term (current) drug therapy
CPT/HCPCS: 36415; 80053; 85025; 99213

== ENCOUNTER 2019-03-31 09:42 | Outpatient (RCR) | payer MEDICARE, MEDICAID ==
[2019-03-03 10:23] VITALS: BP 170/85
[2019-03-31 09:58] VITALS: BP 142/72
[2019-03-31] MEDS ORDERED: CATHETER FLUSH 10 ML SYR IV PRN (11:00)
== END 2019-06-01 | disposition home or self-care (01) ==
LOC: SDC 09:42
PROVIDERS: ATTEND Nurse Practitioner Family
DX: Z45.2 Encounter for adjustment and management of vascular access device (principal)
CPT/HCPCS: 96523

== ENCOUNTER → 2020-10-10 | Outpatient (CLI) | payer MEDICARE, MEDICAID ==
[2020-10-10 11:26] LABS: BASOPHILS % (AUTO) 1 % (0-10); EOSINOPHILS # (AUTO) 0.2 10^3/uL (0.0-0.3); EOSINOPHILS % (AUTO) 3 % (0-10); HEMATOCRIT 34 % (40-54); LYMPHOCYTES # (AUTO) 0.9 10^3/uL (1.0-4.0); LYMPHOCYTES % (AUTO) 15 % (12-44); MEAN CORPUSCULAR HEMOGLOBIN 30 pg (25-34); MEAN CORPUSCULAR HGB CONC 32 g/dL (32-36); MEAN CORPUSCULAR VOLUME 94 fL (80-99); MEAN PLATELET VOLUME 9.5 fL (9.0-12.2); MONOCYTES # (AUTO) 0.8 10^3/uL (0.0-1.0); MONOCYTES % (AUTO) 14 % (0-12); NEUTROPHILS % (AUTO) 67 % (42-75); PLATELET COUNT 233 10^3/uL (130-400)
[2020-10-10 11:43] LABS: ALBUMIN 3.5 GM/DL (3.2-4.5); BILIRUBIN,TOTAL 0.2 MG/DL (0.1-1.0); CALCIUM 8.9 MG/DL (8.5-10.1); CREATININE SERUM 1.79 MG/DL (0.60-1.30); POTASSIUM 4.5 MMOL/L (3.6-5.0); TOTAL PROTEIN 6.3 GM/DL (6.4-8.2)
== END ==
LOC: EDSTATUS 12-12 12:59 → ONC 11:58
PROVIDERS: ATTEND Internal Medicine Hematology & Oncology
DX: C34.91 Malignant neoplasm of unspecified part of right bronchus or lung (principal); I48.0 Paroxysmal atrial fibrillation; J44.9 Chronic obstructive pulmonary disease, unspecified; D64.9 Anemia, unspecified; N28.9 Disorder of kidney and ureter, unspecified; E66.9 Obesity, unspecified; I11.0 Hypertensive heart disease with heart failure; E78.5 Hyperlipidemia, unspecified; I50.9 Heart failure, unspecified; I25.10 Atherosclerotic heart disease of native coronary artery without angina pectoris; E11.9 Type 2 diabetes mellitus without complications; Z79.84 Long term (current) use of oral hypoglycemic drugs; Z79.899 Other long term (current) drug therapy; Z95.0 Presence of cardiac pacemaker; Z79.82 Long term (current) use of aspirin; Z68.27 Body mass index [BMI] 27.0-27.9, adult
CPT/HCPCS: 80053; 85025; G0463; 99213

== ENCOUNTER 2020-11-15 05:42 | Outpatient (CLI) | payer MEDICAID, MEDICARE ==
[~2020-11-15] VITALS: Ht 182.9 cm; Wt 85.0 kg
[2020-11-15] MEDS ORDERED: LEVO137T2 PO (10:06)
[2020-11-15] MEDS ORDERED: INSU100I29 SQ (10:06)
[2020-11-15] MEDS ORDERED: INSU100I55 SQ (10:06)
[2020-11-15] MEDS ORDERED: IPRA3AMP31 IH (10:06)
[2020-11-15] MEDS ORDERED: MULT-1136 PO (10:06)
[2020-11-15] MEDS ORDERED: METF-399 PO (10:06)
[2020-11-15] MEDS ORDERED: DONE10TA41 PO (10:06)
[2020-11-15] MEDS ORDERED: TRAV2.5D6 OU (10:06)
[2020-11-15] MEDS ORDERED: BUDE1AMP IH (10:06)
[2020-11-15] MEDS ORDERED: POLY119P5 PO (10:06)
[2020-11-15] MEDS ORDERED: MAGN400T8 PO (10:06)
[2020-11-15] MEDS ORDERED: ASPI325T32 PO (10:06)
[2020-11-15] MEDS ORDERED: TMSL.4C PO (10:10)
[2020-11-15] MEDS ORDERED: ENLP2.5T PO (10:10)
[2020-11-15] MEDS ORDERED: SENN-234 PO (10:10)
[2020-11-15] MEDS ORDERED: FAMO-119 PO (10:10)
[2020-11-15] MEDS ORDERED: VENL37.52 PO (10:10)
[2020-11-15] MEDS ORDERED: BENZ1TAB6 PO (10:10)
[2020-11-15] MEDS ORDERED: FURO20TA4 PO (10:10)
== END 2020-11-15 10:16 | disposition home or self-care (01) ==
LOC: PREOP 05:42
PROVIDERS: ATTEND Specialist
DX: Z01.818 Encounter for other preprocedural examination (principal)